=== PATIENT | male | born 1970 | race Caucasian/White ===

== ENCOUNTER 2020-03-02 15:22 | Inpatient (IN) ==
[2020-03-02] MEDS ORDERED: ACETAMINOPHEN 500 MG TAB PO STA (15:46)
[2020-03-02] MEDS: SODIUM CHLORIDE 0.9% 1000ML 1,000 ML IV SCH (16:02)
[2020-03-02 16:03] LABS: Basophils # (auto) 0.01 K/uL (0-0.2); Basophils % (auto) 0.1 %; Eosinophils # (auto) 0.01 K/uL (0-0.5); Eosinophils % (auto) 0.1 %; Hematocrit (blood only) 43.8 % (42-52); Hemoglobin 15.3 g/dL (14.0-18.0); Immature Granulocytes # (auto) 0.01 K/uL (0.00-0.02); Immature Granulocytes % (auto) 0.1 %; Lymphocytes # (auto) 1.97 K/uL (1.2-3.4); Lymphocytes % (auto) 27.1 %; Mean Corpuscular Hemoglobin 33.1 pg (25-34); Mean Corpuscular Hgb Conc 34.9 g/dL (32-36); Mean Corpuscular Volume 94.8 fL (80-100); Mean Platelet Volume 11.4 fL (7.4-10.4); Monocytes # (auto) 1.03 K/uL (0.11-0.59); Monocytes % (auto) 14.2 %; Neutrophils # (auto) 4.24 K/uL (1.4-6.5); Neutrophils % (auto) 58.4 %; Platelet Count 251 K/uL (130-400); RDW Coefficient of Variation 12.7 % (11.5-14.5); Red Blood Count 4.62 M/uL (4.7-6.1); White Blood Count 7.27 K/uL (4.8-10.8)
[2020-03-02 16:23] LABS: Partial Thromboplastin Ratio 1.1; Partial Thromboplastin Time 31.6 Seconds (21.0-31.0); Prothrombin Time 10.6 Seconds (9.0-12.0)
[2020-03-02 16:29] LABS: Alanine Aminotransferase 81 U/L (12-78); Albumin Level 3.6 gm/dl (3.4-5.0); Aspartate Aminotransferase 63 U/L (15-37); Blood Urea Nitrogen 9 mg/dl (7-18); C Reactive Protein 2.31 mg/dl (0-0.29); Calcium 9.1 mg/dl (8.5-10.1); Carbon Dioxide 28 mmol/L (21-32); Chloride 101 mmol/L (98-107); Creatinine Clr Calc Pharmacy 112.3 ml/min; Est GFR (African American) 118.7; Est GFR (Non-African American) 102.4; Glucose 95 mg/dl (70-99); Magnesium 2.3 mg/dl (1.8-2.4); Potassium 4.5 mmol/L (3.5-5.1); Sodium 136 mmol/L (136-145)
--- NOTE | 2020-03-02 16:35 | Emergency Department Note ---
History of Present Illness General Chief complaint: Illness Stated complaint: COUGH, FEVER, CHILLS, SOB, FATIGUE Time Seen by Provider: 03/02/20 15:30 History of Present Illness Maximum Pain Intensity: 4 This is a 49-year-old male that presents to the emergency department via EMS with 2 special officer escort from the [facility] with complaints of "cough, fever, chills, shortness of breath, fatigue. Patient has a history of asthma. He states that for the past 3 days he has had fever, chills, cough. He also had a fever initially. Patient notes that the cough is persistent and has a hard time breathing. He also notes chest pain. The patient is currently being seen during the COVID-19 pandemic and does note that there are other inmates at the facility where he currently resides that have COVID-19. Patient is currently incarcerated. He was saturating around 90% on room air per EMS and was placed on 4 L subsequently reaching an O2 saturation of 100% Documents Additional history was obtained from Ivis, medical department at [facility]. She notes same history provided above and does state that O2 sats today were found to be around 90% on RA and was using accessory muscles. COVID swab obtained at [facility] and was sent out for testing per Ivis. Home Medications Medication Instructions Recorded Confirmed Type No Known Home Medications 03/02/20 03/02/20 History Allergies Allergy/AdvReac Type Severity Reaction Status Date / Time No Known Allergies Allergy Unverified 03/02/20 16:10 Past Med/Surg History Medical History (Updated 03/02/20 @ 22:23 by Keturah Restrepo MD) Asthma Surgical History No pertinent past surgical history Social History Smoking Status: Current every day smoker Second Hand Exposure: Yes; Do You Dip or Chew Tobacco: No; Tobacco Cessation Education Requested by Patient: No Hx Alcohol Use: Yes Hx Substance Use: Yes Last Used Substance Other:: "A few years ago" Preferred Language: Maori Communication Ability: Effective Coloring Machine Operator Required: No Beliefs That Will Affect Care: None Current Living Situation: Other Current Living Situation Comment: [facility] Other Information That Helps Us Care for You: No Feels Safe at Home: Yes Safety Concerns: Feels Safe At This Time Assistive Devices: Oxygen - Continuous Assistive Devices Comment: Only DT covid Review of Systems A total of 10 systems reviewed and were otherwise negative Physical Exam Vital Signs Vital Signs - 24 hr 03/02/20 19:30 Pulse Rate 87 Respiratory Rate 18 Blood Pressure 126/72 Blood Pressure Mean 82 Pulse Oximetry 96 VITAL SIGNS - Vital signs and nursing notes were reviewed. Febrile and tachycardic. Otherwise stable. GENERAL -49-year-old male appearing his stated age who is in no acute distress but is conversationally dyspneic and is coughing several times throughout the co nversation. Communicates well with provider and answers questions appropriately. SKIN - Without rashes. No meningeal or petechial rash HEAD - NC/AT. EYES - PERRL with EOMI bilaterally. Sclera anicteric. EARS - No deformities of external structures noted on gross examination bilaterally. NOSE - Midline and without cyanosis. No epistaxis or purulent drainage noted. MOUTH/OROPHARYNX - Without perioral cyanosis. NECK - Neck with FROM. No nuchal rigidity. LUNGS - Chest wall symmetric without accessory muscle use, intercostals retractions, or central cyanosis. Normal vesicular breath sounds CTA B/L. No wheezes, rales, or rhonchi appreciated. No stridor. CARDIAC - RRR with S1/S2. No murmur, rubs, or gallops appreciated. EXTREMITIES - No clubbing or peripheral cyanosis. No pretibial edema pr esent.+5/5 strength noted in UE/LE bilaterally. NEUROLOGIC - Cranial nerves II through XII grossly intact. PSYCH - A&O, and cooperates fully with examiner. Pt is very pleasant and interacts well with examiner. Course Administered Medications Acetaminophen (Acetaminophen 325 Mg Tab) 325 mg PO Q6H PRN PRN Reason: Mild Pain Stop: 04/02/20 05:15 Last Admin: 03/03/20 05:24 Dose: 325 mg Documented by: [id number] Albuterol (Albuterol Hfa 8 Gm Inhaler) 1 puffs INH QID PRN PRN Reason: sob Stop: 04/02/20 02:03 Last Admin: 03/03/20 08:02 Dose: 1 puffs Documented by: [id number] Dexamethasone (Dexamethasone 4 Mg Tab) 6 mg PO DAILY [facility] Stop: 04/02/20 02:29 Last Admin: 03/03/20 03:24 Dose: 6 mg Documented by: [id number] Enoxaparin Sodium (Enoxaparin Inj 40 Mg/0.4 Ml Syr) 40 mg SQ QAM DAMARI Stop: 04/02/20 08:59 Last Admin: 03/03/20 09:16 Dose: 40 mg Documented by: [id number] Sodium Chloride (Nss 1000ml) 1,000 mls @ 125 mls/hr IV .Q8H DAMARI Stop: 04/01/20 15:59 Last Admin: 03/03/20 06:01 Dose: 125 mls/hr Documented by: [id number] Infusion: 03/03/20 00:02 Dose: 0 mls/hr Documented by: [id number] Admin: 03/02/20 16:02 Dose: 125 mls/hr Documented by: [id number] Ipratropium [place] (Ipratropium [place] Hfa Inhaler) 1 puffs INH QID PRN PRN Reason: sob Stop: 04/02/20 02:14 Last Admin: 03/03/20 08:03 Dose: 1 puffs Documented by: [id number] Sodium Chloride (Sodium Chloride 0.9% 10ml Flush) 30 ml IV Q24H DAMARI Stop: 03/07/20 12:01 Last Admin: 03/03/20 06:01 Dose: 30 ml Documented by: [id number] Discontinued Medications Acetaminophen (Acetaminophen 500 Mg Tab) 1,000 mg PO NOW STA Stop: 03/02/20 15:47 Last Admin: 03/02/20 16:02 Dose: 1,000 mg Documented by: [id number] Albuterol (Albuterol Hfa 8 Gm Inhaler) 2 puffs INH NOW ONE Stop: 03/02/20 17:03 Last Admin: 03/02/20 17:38 Dose: 2 puffs Documented by: [id number] Remdesivir 200 mg/ Sodium (Chloride) 250 mls @ 125 mls/hr IV ONE ONE; Protocol Stop: 03/03/20 04:29 Last Infusion: 03/03/20 06:01 Dose: 125 mls/hr Documented by: [id number] Admin: 03/03/20 03:25 Dose: 125 mls/hr Documented by: [id number] Ioversol (Optiray 320 125ml) 118 ml IV ONCE ONE Stop: 03/03/20 02:03 Last Admin: 03/03/20 02:03 Dose: 1 ml Documented by: [id number] Ioversol (Optiray 320 125ml) 120 ml IV ONCE ONE Stop: 03/03/20 09:08 Last Admin: 03/03/20 09:07 Dose: 120 ml Documented by: [id number] Medical Decision Making Laboratory Data Result diagrams: 03/02/20 14:28 03/03/20 07:05 Lab Results 03/02/20 03/02/20 03/02/20 Range/Units 14:28 14:28 14:28 WBC 7.27 (4.8-10.8) K/uL RBC 4.62 L (4.7-6.1) M/uL Hgb 15.3 (14.0-18.0) g/dL Hct 43.8 (42-52) % MCV 94.8 (80-100) fL MCH 33.1 (25-34) pg MCHC 34.9 (32-36) g/dL RDW Std Deviation 44.0 (36.4-46.3) fL RDW Coeff of Rose 12.7 (11.5-14.5) % Plt Count 251 (130-400) K/uL MPV 11.4 H (7.4-10.4) fL Immature Gran % (Auto) 0.1 % Neut % (Auto) 58.4 % Lymph % (Auto) 27.1 % [place] % (Auto) 14.2 % Eos % (Auto) 0.1 % Baso % (Auto) 0.1 % Neut # (Auto) 4.24 (1.4-6.5) K/uL Lymph # (Auto) 1.97 (1.2-3.4) K/uL [place] # (Auto) 1.03 H (0.11-0.59) K/uL Eos # (Auto) 0.01 (0-0.5) K/uL Baso # (Auto) 0.01 (0-0.2) K/uL Immature Gran # (Auto) 0.01 (0.00-0.02) K/uL ESR (0-14) mm/hr PT 10.6 (9.0-12.0) Seconds INR 1.0 (0.9-1.1) APTT 31.6 H (21.0-31.0) Seconds PTT Ratio 1.1 D-Dimer (0-500) ug/L FEU Sodium 136 (136-145) mmol/L Potassium 4.5 (3.5-5.1) mmol/L Chloride 101 (98-107) mmol/L Carbon Dioxide 28 (21-32) mmol/L Anion Gap 7.0 (3-11) BUN 9 (7-18) mg/dl Creatinine 0.82 (0.6-1.4) mg/dl Est Cr Clr Drug Dosing 112.3 ml/min Est GFR ( Amer) 118.7 Est GFR (Non-Af Amer) 102.4 BUN/Creatinine Ratio 11.0 (10-20) Glucose 95 (70-99) mg/dl Calcium 9.1 (8.5-10.1) mg/dl Magnesium 2.3 (1.8-2.4) mg/dl Ferritin 531.5 H (8-388) ng/ml Total Bilirubin 0.6 (0.2-1) mg/dl AST 63 H (15-37) U/L ALT 81 H (12-78) U/L Alkaline Phosphatase 62 (45-117) U/L Lactate Dehydrogenase (87-241) U/L Troponin I < 0.015 (0-0.045) ng/ml C-Reactive Protein 2.31 H (0-0.29) mg/dl Total Protein 9.6 H (6.4-8.2) gm/dl Albumin 3.6 (3.4-5.0) gm/dl Globulin 6.0 H (2.5-4.0) gm/dl Albumin/Globulin Ratio 0.6 L (0.9-2) Procalcitonin (0-0.5) ng/ml COVID-19 Eval Order SARS-CoV-2, RNA, NAAT (NEGATIVE) 03/02/20 03/02/20 03/02/20 Range/Units 14:28 14:28 14:28 WBC (4.8-10.8) K/uL RBC (4.7-6.1) M/uL Hgb (14.0-18.0) g/dL Hct (42-52) % MCV (80-100) fL MCH (25-34) pg MCHC (32-36) g/dL RDW Std Deviation (36.4-46.3) fL RDW Coeff of Rose (11.5-14.5) % Plt Count (130-400) K/uL MPV (7.4-10.4) fL Immature Gran % (Auto) % Neut % (Auto) % Lymph % (Auto) % [place] % (Auto) % Eos % (Auto) % Baso % (Auto) % Neut # (Auto) (1.4-6.5) K/uL Lymph # (Auto) (1.2-3.4) K/uL [place] # (Auto) (0.11-0.59) K/uL Eos # (Auto) (0-0.5) K/uL Baso # (Auto) (0-0.2) K/uL Immature Gran # (Auto) (0.00-0.02) K/uL ESR 56 H (0-14) mm/hr PT (9.0-12.0) Seconds INR (0.9-1.1) APTT (21.0-31.0) Seconds PTT Ratio D-Dimer (0-500) ug/L FEU Sodium (136-145) mmol/L Potassium (3.5-5.1) mmol/L Chloride (98-107) mmol/L Carbon Dioxide (21-32) mmol/L Anion Gap (3-11) BUN (7-18) mg/dl Creatinine (0.6-1.4) mg/dl Est Cr Clr Drug Dosing ml/min Est GFR ( Amer) Est GFR (Non-Af Amer) BUN/Creatinine Ratio (10-20) Glucose (70-99) mg/dl Calcium (8.5-10.1) mg/dl Magnesium (1.8-2.4) mg/dl Ferritin (8-388) ng/ml Total Bilirubin (0.2-1) mg/dl AST (15-37) U/L ALT (12-78) U/L Alkaline Phosphatase (45-117) U/L Lactate Dehydrogenase 293 H (87-241) U/L Troponin I (0-0.045) ng/ml C-Reactive Protein (0-0.29) mg/dl Total Protein (6.4-8.2) gm/dl Albumin (3.4-5.0) gm/dl Globulin (2.5-4.0) gm/dl Albumin/Globulin Ratio (0.9-2) Procalcitonin 0.09 (0-0.5) ng/ml COVID-19 Eval Order SARS-CoV-2, RNA, NAAT (NEGATIVE) 03/02/20 03/02/20 03/02/20 Range/Units 14:28 17:40 17:40 WBC (4.8-10.8) K/uL RBC (4.7-6.1) M/uL Hgb (14.0-18.0) g/dL Hct (42-52) % MCV (80-100) fL MCH (25-34) pg MCHC (32-36) g/dL RDW Std Deviation (36.4-46.3) fL RDW Coeff of Rose (11.5-14.5) % Plt Count (130-400) K/uL MPV (7.4-10.4) fL Immature Gran % (Auto) % Neut % (Auto) % Lymph % (Auto) % [place] % (Auto) % Eos % (Auto) % Baso % (Auto) % Neut # (Auto) (1.4-6.5) K/uL Lymph # (Auto) (1.2-3.4) K/uL [place] # (Auto) (0.11-0.59) K/uL Eos # (Auto) (0-0.5) K/uL Baso # (Auto) (0-0.2) K/uL Immature Gran # (Auto) (0.00-0.02) K/uL ESR (0-14) mm/hr PT (9.0-12.0) Seconds INR (0.9-1.1) APTT (21.0-31.0) Seconds PTT Ratio D-Dimer 760 H* (0-500) ug/L FEU Sodium (136-145) mmol/L Potassium (3.5-5.1) mmol/L Chloride (98-107) mmol/L Carbon Dioxide (21-32) mmol/L Anion Gap (3-11) BUN (7-18) mg/dl Creatinine (0.6-1.4) mg/dl Est Cr Clr Drug Dosing ml/min Est GFR ( Amer) Est GFR (Non-Af Amer) BUN/Creatinine Ratio (10-20) Glucose (70-99) mg/dl Calcium (8.5-10.1) mg/dl Magnesium (1.8-2.4) mg/dl Ferritin (8-388) ng/ml Total Bilirubin (0.2-1) mg/dl AST (15-37) U/L ALT (12-78) U/L Alkaline Phosphatase (45-117) U/L Lactate Dehydrogenase (87-241) U/L Troponin I (0-0.045) ng/ml C-Reactive Protein (0-0.29) mg/dl Total Protein (6.4-8.2) gm/dl Albumin (3.4-5.0) gm/dl Globulin (2.5-4.0) gm/dl Albumin/Globulin Ratio (0.9-2) Procalcitonin (0-0.5) ng/ml COVID-19 Eval Order Covid19 [facility] SARS-CoV-2, RNA, NAAT POSITIVE A* (NEGATIVE) Imaging Data Radiologist's Impression: SINGLE VIEW CHEST CLINICAL HISTORY: Atypical chest pain. Covid. FINDINGS: An AP, portable, upright chest radiograph is obtained. No prior studies are available for comparison at the time of dictation. The examination is degraded by portable technique and apical lordotic positioning. The heart is top normal for projection. Multifocal airspace consolidation is seen throughout both lungs. No large pleural effusion or pneumothorax is seen. The bony thorax is grossly intact. IMPRESSION: Multifocal airspace consolidation is consistent with an infectious pneumonitis. Clinical correlation will be required and radiographic follow-up to resolution is recommended. ACT 112: Negative or not required by law. Electronically signed by: Power Regan M.D. 03/02/2020 4:40 PM [facility] Narrative Patient was seen and evaluated as above in room A12. Review was performed of nursing notes and vital signs. After obtaining a thorough history and physical examination the above work up was performed. Patient presents to us today with 3 days of cough, fever, chills, shortness of breath and fatigue. He is currently being seen during the COVID-19 pandemic. He is incarcerated currently. COVID19 swab is pending at this time per [employer]. He denies any close contacts that have been ill. On arrival the patient is short of breath, conversationally dyspneic and is febrile. Reportedly O2 sat was as low as 90% on room air. He was given p.o. Tylenol and albuterol inhaler. IV access was established. Labs were drawn. Chest x-ray consistent with multifocal airspace consolidation consistent with infectious pneumonia. Patient clinically appears to have COVID-19 and this was confirmed via test here. No leukocytosis or anemia. No emergent metabolic disturbance. Ferritin, lactate dehydrogenase, CRP elevation. Covid negative. Patient's EKG at this time reveals normal sinus rhythm at a rate of 99 bpm. No ectopy or ischemic change. QTc 433. Given the patient's decline, O2 sat of 90%, being conversationally dyspneic, using accessory muscles on examination earlier today per DOC report, and history of asthma it is felt that he would be better served in the inpatient setting. Several conversations were had with Ivis, from medical at [facility]. I did notify them that he will be admitted. Case discussed with the attending physician as well as the hospitalist. Additional orders of D Dimer and Blood cultures recommended and were ordered. Please refer to further documentation about his stay. Case was discussed with the attending physician. Patient was seen during the COVID-19 pandemic during a period of high volume and acuity. Cardiac monitoring was ordered and revealed a pulse of 83 bpm. Sinus. GCS: 15 In the evaluation and treatment of this patient the following differential diagnoses were entertained: MO, PE, pericarditis, costochondritis, pneumonia, COVID-19, myocarditis, among others. Impression & Plan COVID-19, Chest pain, Acute dyspnea, Cough, Fever Discharge Plan Visit Data Chief Complaint: Illness Stated Complaint: COUGH, FEVER, CHILLS, SOB, FATIGUE ED Provider: Nayan Guidry ED Midlevel Provider: Franko Nunez Discharge Problem: COVID-19, Chest pain, Acute dyspnea, Cough, Fever Patient Disposition: Admitted As Inpatient Discharge Instructions Interventions: ED Discharge Assessment Last Done: 03/03/20 01:36
[2020-03-02 16:37] LABS: Albumin Globulin Ratio 0.6 (0.9-2); Alkaline Phosphatase 62 U/L (45-117); Bilirubin,Total 0.6 mg/dl (0.2-1); Ferritin 531.5 ng/ml (8-388); Total Protein 9.6 gm/dl (6.4-8.2); Troponin I < 0.015 ng/ml (0-0.045)
--- NOTE | 2020-03-02 16:41 | XRay Report ---
SINGLE VIEW CHEST CLINICAL HISTORY: Atypical chest pain. Covid. FINDINGS: An AP, portable, upright chest radiograph is obtained. No prior studies are available for c omparison at the time of dictation. The examination is degraded by portable technique and apical lord otic positioning. The heart is top normal for projection. Multifocal airspace consolidation is seen t hroughout both lungs. No large pleural effusion or pneumothorax is seen. The bony thorax is grossly i ntact. IMPRESSION: Multifocal airspace consolidation is consistent with an infectious pneumonitis. Clinical correlation will be required and radiographic follow-up to resolution is recommended. ACT 112: Negative or not required by law. Electronically signed by: Power Regan M.D. 03/02/2020 4:40 PM
[2020-03-02] MEDS ORDERED: ALBUTEROL HFA 8 GM INHALER INH ONE (17:02)
[2020-03-02 18:24] LABS: D Dimer 760 ug/L FEU (0-500)
[2020-03-02 21:25] LABS: Appearance Urine Clear (Clear); Bilirubin Urine Negative (Negative); Blood Urine Negative (Negative); Color Urine Yellow; Glucose Urine UA Negative (Negative); Ketones Urine Negative (Negative); Leukocyte Esterase Urine Negative (Negative); Nitrite Urine Negative (Negative); Protein Urine Negative (Negative); Urobilinogen Urine Negative (Negative)
--- NOTE | 2020-03-02 21:51 | History & Physical Report ---
Date of Service March 02, 2020 Assessment & Plan (1) Pneumonia due to 2019 novel coronavirus: Present on admission with SOB associated with fever and dry cough COVID 19 positive CXR showed multifocal airspace consolidation is consistent with an infectious pneumonitis. Pt meets criteria for Dexamethasone, Remdesivir and plasma convalescent oxygen sat 90% and required 2L NC Will start on Dexamethosene 6mg IV daily IV remdesivir 200mg IVx1, then 125mg to complete a total 5 days course, side effect discussed with patient such as worsening liver enzymes Pt agreed to get the plasma convalescent. Consent obtained from patient (Consent form signed by me and nurses) Will monitor LFT while on Remdesivir Elevated Ddimer, CRP, LDH and ESR Will monitor inflammatory markers such as ESR, CRP, Ferritin, LDH Will hold on abx for now since procalcitonin negative, will repeat procalcitonin in am Continue oxygen supplement Will monitor closely Elevated D-Dimer Mostly due to COVID 19 Will get a CTA chest to r/o PE Continue monitor closely Elevated Liver Enzymes Mostly due to HCV Case discussed with pharmacy about Remdesivir in HCV patient and that is not a contraindication Will monitor LFT closely DVT px on Lovenox subq Code Status Full code History of Present Illness Chief Complaint: SOB/Fever Primary Care Provider: [facility] 49 yo Male with PMH of HCV, asthma was brought from the [facility] to the ER for SOB, cough associated with fever and chills. Pt is incarcerated and came with 2correctional officers. He said that SOB started about 3 days ago. Pt said that about 3 days ago he started to have dry cough and SOB. He said that he has been having fever and chills. Pt said that his breathing has been getting worst and the cough continue to persist. As per EMS his oxygen saturation was in the 90% and was placed on 4L NC . He said that he is breathing better with the oxygen. Denies any chest pain, palpitation, dizziness and weakness. CXR on admission showed multifocal airspace consolidation is consistent with an infectious pneumonitis. Allergies Allergy/AdvReac Type Severity Reaction Status Date / Time No Known Allergies Allergy Unverified 03/02/20 16:10 Home Medications Medication Instructions Recorded Confirmed Type No Known Home Medications 03/02/20 03/02/20 History Past Med/Surg History Medical History Asthma Surgical History No pertinent past surgical history Social History Smoking Status: Current every day smoker Feels Safe at Home: Yes Review of Systems Review of Systems: All systems reviewed & are unremarkable except as noted in HPI & below Physical Exam Physical Exam: General- No acute distress Head- atraumatic Eyes- PERRL, EOMI, ENT- oropharynx clear Neck- supple, no JVD Lungs- clear to auscultation Heart- regular rhythm; no murmur Abdomen- normal bowel sounds, soft, nontender Extremities- no calf tenderness Neuro- alert, oriented x 3; PERRL, EOMI; no facial palsy; no dysarthria Skin- warm & dry Results & Data Results & Data ([facility]) Vital Signs (Past 12 Hours) Vital Signs Temp Pulse Pulse Resp BP BP Pulse Ox 03/02/20 21:31 82 22 126/82 97 03/02/20 21:18 37.1 C 03/02/20 21:00 84 21 129/72 97 03/02/20 20:30 83 24 120/69 97 03/02/20 20:00 80 21 127/67 97 03/02/20 19:30 87 18 126/72 96 03/02/20 19:00 87 24 127/70 98 03/02/20 18:31 94 H 20 96 03/02/20 18:30 96 H 20 134/85 96 03/02/20 18:01 87 20 97 03/02/20 18:00 84 20 137/74 97 03/02/20 17:40 37.0 C 03/02/20 17:31 78 18 94 03/02/20 17:30 78 20 137/78 95 03/02/20 17:01 83 20 93 03/02/20 17:00 87 23 132/76 94 03/02/20 16:31 99 H 21 95 03/02/20 16:30 87 22 119/73 94 03/02/20 16:01 95 H 22 94 03/02/20 16:00 97 H 20 145/83 H 93 03/02/20 15:50 101 H 20 96 03/02/20 15:41 38.9 C H 101 H 101 H 20 148/84 H 148/84 H 96 03/02/20 15:38 105 H 23 94 03/02/20 15:31 101 H 20 148/84 H 96 Diagnostic Findings SINGLE VIEW CHEST CLINICAL HISTORY: Atypical chest pain. Covid. FINDINGS: An AP, portable, upright chest radiograph is obtained. No prior studies are available for comparison at the time of dictation. The examination i s degraded by portable technique and apical lordotic positioning. The heart is top normal for projection. Multifocal airspace consolidation is seen throughout both lungs. No large pleural effusion or pneumothorax is seen. The bony thorax is grossly intact. IMPRESSION: Multifocal airspace consolidation is consistent with an infectious pneumonitis. Clinical correlation will be required and radiographic follow-up to resolution is recommended. ACT 112: Negative or not required by law. Electronically signed by: Power Regan M.D. 03/02/2020 4:40 PM Dictated: 03/02/20 1639Transcribed: 03/02/20 1639
[2020-03-03] MEDS ORDERED: dexAMETHasone 1 MG TAB PO SCH (01:56)
[2020-03-03] MEDS ORDERED: IPRATROPIUM BROMIDE/ALBUTEROL respimat INH INH PRN (01:56)
[2020-03-03] MEDS ORDERED: OPTIRAY 320 125ml IV ONE ×2 (02:02→09:07)
[2020-03-03] MEDS ORDERED: REMDESIVIR 200 MG in SODIUM CHLORIDE 0.9% 210 ML IV ONE (02:30)
[2020-03-03] MEDS: dexAMETHasone 4 MG TAB PO SCH (03:24)
[2020-03-03] MEDS ORDERED: ACETAMINOPHEN 325 MG TAB PO PRN (05:16)
[2020-03-03] MEDS: SODIUM CHLORIDE 0.9% 1000ML 1,000 ML IV SCH ×3 (06:01→23:36)
[2020-03-03] MEDS: SODIUM CHLORIDE 0.9% 10ML FLUSH IV SCH (06:01)
--- NOTE | 2020-03-03 06:36 | Electrocardiogram Report ---
Test Reason : Blood Pressure : / mmHG Vent. Rate : 099 BPM Atrial Rate : 099 BPM P-R Int : 138 ms QRS Dur : 088 ms QT Int : 338 ms P-R-T Axes : 047 -18 052 degrees QTc Int : 433 ms Normal sinus rhythm Possible Left atrial enlargement Borderline ECG No previous ECGs available Confirmed by Roland Saenz ([id number]) on 03/03/2020 6:36:01 AM Referred By: Confirmed By:Roland Saenz
[2020-03-03] MEDS: ALBUTEROL HFA 8 GM INHALER INH PRN (08:02)
[2020-03-03] MEDS: IPRATROPIUM BROMIDE HFA INHALER INH PRN (08:03)
[2020-03-03 08:33] LABS: BUN Creatinine Ratio 9.4 (10-20); C Reactive Protein 3.33 mg/dl (0-0.29); Calcium 8.1 mg/dl (8.5-10.1); Creatinine Clr Calc Pharmacy 135.7 ml/min; Est GFR (African American) 128.2; Est GFR (Non-African American) 110.6
[2020-03-03 08:38] LABS: Albumin Globulin Ratio 0.6 (0.9-2); Bilirubin,Total 0.5 mg/dl (0.2-1); Globulin 5.3 gm/dl (2.5-4.0); Total Protein 8.3 gm/dl (6.4-8.2)
--- NOTE | 2020-03-03 09:14 | CT Scan Report ---
CT ANGIOGRAM OF THE CHEST CLINICAL HISTORY: Atypical chest pain. Covid. COMPARISON STUDY: Chest x-ray dated 03/02/2020. TECHNIQUE: Following the IV administration of 120 cc of Optiray 320, CT angiogram of the chest was pe rformed from the upper abdomen to the thoracic inlet utilizing the pulmonary embolus protocol. Images are reviewed in the axial, sagittal, and coronal planes. 3-D MIPS images are created and assessed. I V contrast was administered without complication. A dose lowering technique was utilized adhering to the principles of ALARA. CT DOSE: 595.32 mGycm FINDINGS: Thyroid: Imaged portions of the thyroid gland are normal in size and attenuation. Thoracic aorta: The thoracic aorta is normal in caliber and demonstrates variant 3-vessel arch anatom y. There is bovine arch anatomy, and the left vertebral artery arises directly from the arch. No diss ection is seen. Pulmonary vasculature: The pulmonary trunk is normal in caliber. There are no filling defects identif ied in main, lobar, or segmental pulmonary branches to suggest pulmonary embolus. Heart: The heart is top normal in size and without pericardial effusion. The coronary arteries are de nsely calcified. Lungs and pleural spaces: Emphysematous change is noted. The trachea and central airways are clear. T here is multifocal groundglass consolidation seen throughout both lungs with a subpleural predominanc e. Atelectasis is noted. Lung bases. No pleural effusion is identified. Mediastinum: There are numerous prominent mediastinal lymph nodes. A subcarinal node measures 12 mm i n short axis as seen on image #143. Suzanna: Mildly enlarged hilar lymph nodes measure up to 13 mm in short axis. Axillae: There is no axillary lymphadenopathy. Upper abdomen: Partially visualized upper abdominal viscera is within normal limits. Skeletal structures: There are minimal superior endplate compression deformities of T5, T7, and T8. N o lytic or blastic bony lesions are seen. IMPRESSION: 1. There is no evidence of pulmonary embolus in the main, lobar, or segmental pulmonary arteries. 2. Multifocal groundglass consolidation throughout both lungs is typical for an infectious pneumoniti s. Radiographic follow-up to resolution is recommended. 3. Emphysema. 4. Advanced coronary artery calcification. 5. Mildly enlarged mediastinal and hilar lymph nodes are likely on a reactive basis. 6. Additional findings as above. ACT 112: Negative or not required by law. Electronically signed by: Power Regan M.D. 03/03/2020 9:13 AM
[2020-03-03] MEDS: ENOXAPARIN INJ 40 MG/0.4 ML SYR SQ SCH (09:16)
--- NOTE | 2020-03-03 19:51 | Hospitalist Progress Note ---
Date of Service March 03, 2020 Assessment & Plan (1) Pneumonia due to 2019 novel coronavirus: Continue 2 L of oxygen via nasal cannula Continue remdesivir and Decadron Will hold on abx for now since procalcitonin negative, will repeat procalcitonin in am Lovenox for DVT prophylaxis States he feels improved today Elevated D-Dimer Mostly due to COVID 19 CT chest no PE Clinical exam no DVT Elevated Liver Enzymes Mostly due to HCV Case discussed with pharmacy about Remdesivir in HCV patient and that is not a contraindication LFTs stable DVT px on Lovenox subq Code Status Full code Admission and Anticipated Discharge Date Admission Date: March 02, 2020 Subjective ff up for COVID pneumonia, hypoxia seen resting in bed, comfortable on 2 L nasal cannula Not in distress States he feels improved today compared yesterday No shortness of breath, cough improving No chest pain No abdominal pain, diarrhea No leg pain No other symptoms Review of Systems Review of Systems: All systems reviewed & are unremarkable except as noted in Subjective Physical Exam Physical Exam: General- oriented x 3, not in distress, speaks in sentences with no effort or accessory muscle use Eyes- anicteric Neck- no JVD Lungs-mild crackles at the bases, no rales/wheezes Heart- normal rate, regular rhythm; no murmurs Abdomen- normal bowel sounds, nondistended, soft, nontender Extremities- no pretibial edema, no calf tenderness Neuro- alert, oriented x 3; no gross focal neurologic deficits Skin- warm & dry Results & Data Results & Data ([facility]) Vital Signs (Past 12 Hours) Vital Signs Temp Pulse Pulse Resp BP BP Pulse Ox 03/03/20 16:52 36.5 C 77 16 121/71 96 03/03/20 16:38 36.9 C 74 18 113/63 94 03/03/20 16:25 36.7 C 72 16 145/72 H 94 03/03/20 16:18 36.9 C 72 18 118/68 94 03/03/20 15:58 36.6 C 71 16 126/69 95 03/03/20 08:04 76 18 98 Laboratory Results Laboratory Results - last 24 hr 03/02/20 03/02/20 03/03/20 21:15 23:08 07:05 ESR Sodium 138 Potassium 4.0 Chloride 107 Carbon Dioxide 24 Anion Gap 7.0 BUN 6 L Creatinine 0.68 Est Cr Clr Drug Dosing 135.7 Est GFR ( Amer) 128.2 Est GFR (Non-Af Amer) 110.6 BUN/Creatinine Ratio 9.4 L Glucose 117 H Calcium 8.1 L Ferritin 485.0 H Total Bilirubin 0.5 AST 48 H ALT 63 Alkaline Phosphatase 52 Lactate Dehydrogenase C-Reactive Protein 3.33 H Total Protein 8.3 H Albumin 3.0 L Globulin 5.3 H Albumin/Globulin Ratio 0.6 L Procalcitonin Urine Color Yellow Urine Appearance Clear Urine pH 6.0 Ur Specific [place] 1.010 Urine Protein Negative Urine Glucose (UA) Negative Urine Ketones Negative Urine Blood Negative Urine Nitrite Negative Urine Bilirubin Negative Urine Urobilinogen Negative Ur Leukocyte Esterase Negative Blood Type A Positive Antibody Screen NEGATIVE 03/03/20 03/03/20 03/03/20 07:05 07:05 07:05 ESR 65 H Sodium Potassium Chloride Carbon Dioxide Anion Gap BUN Creatinine Est Cr Clr Drug Dosing Est GFR ( Amer) Est GFR (Non-Af Amer) BUN/Creatinine Ratio Glucose Calcium Ferritin Total Bilirubin AST ALT Alkaline Phosphatase Lactate Dehydrogenase 275 H C-Reactive Protein Total Protein Albumin Globulin Albumin/Globulin Ratio Procalcitonin 0.06 Urine Color Urine Appearance Urine pH Ur Specific [place] Urine Protein Urine Glucose (UA) Urine Ketones Urine Blood Urine Nitrite Urine Bilirubin Urine Urobilinogen Ur Leukocyte Esterase Blood Type Antibody Screen
[2020-03-04] MEDS: ALBUTEROL HFA 8 GM INHALER INH PRN (00:23)
[2020-03-04] MEDS: IPRATROPIUM BROMIDE HFA INHALER INH PRN (00:23)
[2020-03-04] MEDS: ENOXAPARIN INJ 40 MG/0.4 ML SYR SQ SCH (08:50)
[2020-03-04] MEDS: dexAMETHasone 4 MG TAB PO SCH (08:51)
[2020-03-04] MEDS: REMDESIVIR 100 MG in SODIUM CHLORIDE 0.9% 230 ML IV SCH (12:29)
[2020-03-04] MEDS: SODIUM CHLORIDE 0.9% 10ML FLUSH IV SCH (13:25)
[2020-03-04 14:18] LABS: Basophils # (auto) 0.01 K/uL (0-0.2); Basophils % (auto) 0.1 %; Hematocrit (blood only) 40.2 % (42-52); Hemoglobin 13.8 g/dL (14.0-18.0); Immature Granulocytes # (auto) 0.01 K/uL (0.00-0.02); Immature Granulocytes % (auto) 0.1 %; Lymphocytes # (auto) 0.99 K/uL (1.2-3.4); Lymphocytes % (auto) 14.1 %; Mean Corpuscular Hemoglobin 32.6 pg (25-34); Mean Corpuscular Hgb Conc 34.3 g/dL (32-36); Mean Platelet Volume 10.7 fL (7.4-10.4); Monocytes # (auto) 0.22 K/uL (0.11-0.59); Monocytes % (auto) 3.1 %; Neutrophils # (auto) 5.78 K/uL (1.4-6.5); Neutrophils % (auto) 82.6 %; Platelet Count 297 K/uL (130-400); RDW Coefficient of Variation 12.7 % (11.5-14.5); RDW Standard Deviation 44.2 fL (36.4-46.3); Red Blood Count 4.23 M/uL (4.7-6.1); White Blood Count 7.01 K/uL (4.8-10.8)
[2020-03-04 14:42] LABS: Albumin Level 2.9 gm/dl (3.4-5.0); Bilirubin Direct 0.2 mg/dl (0-0.2); Calcium 8.2 mg/dl (8.5-10.1); Creatinine Clr Calc Pharmacy 99.2 ml/min; Est GFR (African American) 109.8; Est GFR (Non-African American) 94.7
[2020-03-04 14:45] LABS: Bilirubin,Total 0.4 mg/dl (0.2-1); Total Protein 8.2 gm/dl (6.4-8.2)
--- NOTE | 2020-03-04 20:38 | Hospitalist Progress Note ---
Date of Service March 04, 2020 Assessment & Plan (1) Pneumonia due to 2019 novel coronavirus: Continue 2 L of oxygen via nasal cannula--> wean off accordingly Continue remdesivir and Decadron Will hold on abx for now since procalcitonin negative, will repeat procalcitonin in am Lovenox for DVT prophylaxis Incentive spirometry Elevated D-Dimer Mostly due to COVID 19 CT chest no PE Clinical exam no DVT Elevated Liver Enzymes Mostly due to HCV Case discussed with pharmacy about Remdesivir in HCV patient and that is not a contraindication LFTs stable DVT px on Lovenox subq Code Status Full code Admission and Anticipated Discharge Date Admission Date: March 02, 2020 Subjective ff up for Covid 19 pneumonia, hypoxia seen resting in bed, not in distress states breathing is about the same has mild cough ,with white sputum no chest pain, leg pain, abdominal pain no other symptoms Review of Systems Review of Systems: All systems reviewed & are unremarkable except as noted in Subjective Physical Exam Physical Exam: General- oriented x 3, not in distress, speaks in sentences with no effort or accessory muscle use Eyes- anicteric Neck- no JVD Lungs- mild rales at the bases Heart- normal rate, regular rhythm; no murmurs Abdomen- normal bowel sounds, nondistended, soft, nontender Extremities- no pretibial edema, no calf tenderness Neuro- alert, oriented x 3; no gross focal neurologic deficits Skin- warm & dry Results & Data Results & Data ([facility]) Vital Signs (Past 12 Hours) Vital Signs Temp Pulse Resp BP Pulse Ox 03/04/20 17:14 93 03/04/20 16:00 36.7 C 64 18 124/69 93 Laboratory Results Laboratory Results - last 24 hr 03/04/20 03/04/20 14:00 14:00 WBC 7.01 RBC 4.23 L Hgb 13.8 L Hct 40.2 L MCV 95.0 MCH 32.6 MCHC 34.3 RDW Std Deviation 44.2 RDW Coeff of Rose 12.7 Plt Count 297 MPV 10.7 H Immature Gran % (Auto) 0.1 Neut % (Auto) 82.6 Lymph % (Auto) 14.1 Reeves % (Auto) 3.1 Eos % (Auto) 0.0 Baso % (Auto) 0.1 Neut # (Auto) 5.78 Lymph # (Auto) 0.99 L Reeves # (Auto) 0.22 Eos # (Auto) 0.00 Baso # (Auto) 0.01 Immature Gran # (Auto) 0.01 Sodium 140 Potassium 4.0 Chloride 107 Carbon Dioxide 23 Anion Gap 10.0 BUN 12 D Creatinine 0.93 Est Cr Clr Drug Dosing 99.2 Est GFR ( Amer) 109.8 Est GFR (Non-Af Amer) 94.7 BUN/Creatinine Ratio 13.0 Glucose 241 H Calcium 8.2 L Total Bilirubin 0.4 Direct Bilirubin 0.2 AST 30 ALT 46 Alkaline Phosphatase 50 Total Protein 8.2 Albumin 2.9 L
[2020-03-05] MEDS: ENOXAPARIN INJ 40 MG/0.4 ML SYR SQ SCH (08:06)
[2020-03-05] MEDS: dexAMETHasone 4 MG TAB PO SCH (08:50)
[2020-03-05 09:03] LABS: BUN Creatinine Ratio 19.9 (10-20); Bilirubin Direct 0.1 mg/dl (0-0.2); Calcium 8.7 mg/dl (8.5-10.1); Est GFR (African American) 123.1; Est GFR (Non-African American) 106.2; Potassium 4.5 mmol/L (3.5-5.1)
[2020-03-05 09:06] LABS: Bilirubin,Total 0.5 mg/dl (0.2-1); Total Protein 8.5 gm/dl (6.4-8.2)
[2020-03-05] MEDS: REMDESIVIR 100 MG in SODIUM CHLORIDE 0.9% 230 ML IV SCH (11:38)
[2020-03-05] MEDS: SODIUM CHLORIDE 0.9% 10ML FLUSH IV SCH (11:38)
[2020-03-05] MEDS: PANTOprazole 40 MG TAB PO SCH (12:47)
--- NOTE | 2020-03-05 18:25 | Hospitalist Progress Note ---
Date of Service March 05, 2020 Assessment & Plan (1) Pneumonia due to 2019 novel coronavirus: Continue oxygen via nasal cannula--> wean off accordingly Continue remdesivir and Decadron day #4 Will hold on abx for now since procalcitonin negative, will repeat procalcitonin in am Lovenox for DVT prophylaxis Incentive spirometry, Mucinex added Renal function stable Elevated D-Dimer Mostly due to COVID 19 CT chest no PE Clinical exam no DVT Elevated Liver Enzymes Mostly due to HCV Case discussed with pharmacy about Remdesivir in HCV patient and that is not a contraindication LFTs stable DVT px on Lovenox subq Code Status Full code Admission and Anticipated Discharge Date Admission Date: March 02, 2020 Subjective Follow-up for Covid pneumonia, hypoxia, etc. Seen resting in bed, comfortable, not in distress On 1 L of oxygen via nasal cannula States breathing continues to improve, less cough Denies chest pain, leg pain, abdominal pain, nausea vomiting, diarrhea, appetite is good No other symptom Review of Systems Review of Systems: All systems reviewed & are unremarkable except as noted in Subjective Physical Exam Physical Exam: General- oriented x 3, not in distress, speaks in sentences with no effort or accessory muscle use Eyes- anicteric Neck- no JVD Lungs-mild rales at the bases, no wheezing, good air entry bilaterally Heart- normal rate, regular rhythm; no murmurs Abdomen- normal bowel sounds, nondistended, soft, nontender Extremities- no pretibial edema, no calf tenderness Neuro- alert, oriented x 3; no gross focal neurologic deficits Skin- warm & dry Results & Data Results & Data ([facility]) Vital Signs (Past 12 Hours) Vital Signs Temp Pulse Resp BP Pulse Ox 03/05/20 15:20 36.8 C 62 18 126/67 95 03/05/20 07:37 36.8 C 61 16 121/74 96 Laboratory Results Laboratory Results - last 24 hr 03/05/20 05:38 Sodium 141 Potassium 4.5 Chloride 108 H Carbon Dioxide 26 Anion Gap 7.0 BUN 15 Creatinine 0.75 Est Cr Clr Drug Dosing 123.0 Est GFR ( Amer) 123.1 Est GFR (Non-Af Amer) 106.2 BUN/Creatinine Ratio 19.9 Glucose 102 H Calcium 8.7 Total Bilirubin 0.5 Direct Bilirubin 0.1 AST 27 ALT 45 Alkaline Phosphatase 47 Total Protein 8.5 H Albumin 3.0 L
[2020-03-05] MEDS: guaiFENesin 600 MG TABCR PO SCH (21:29)
[2020-03-06] MEDS: guaiFENesin 600 MG TABCR PO SCH (07:47)
[2020-03-06] MEDS: dexAMETHasone 4 MG TAB PO SCH (07:48)
[2020-03-06] MEDS: ENOXAPARIN INJ 40 MG/0.4 ML SYR SQ SCH (07:48)
[2020-03-06] MEDS: PANTOprazole 40 MG TAB PO SCH (07:49)
[2020-03-06 10:39] LABS: BUN Creatinine Ratio 22.4 (10-20); Calcium 8.5 mg/dl (8.5-10.1); Creatinine Clr Calc Pharmacy 135.7 ml/min; Est GFR (African American) 128.2; Est GFR (Non-African American) 110.6; Potassium 4.4 mmol/L (3.5-5.1)
[2020-03-06 10:58] LABS: Albumin Level 2.9 gm/dl (3.4-5.0); Calcium 8.5 mg/dl (8.5-10.1); Creatinine Clr Calc Pharmacy 133.7 ml/min; Est GFR (African American) 127.4; Est GFR (Non-African American) 109.9
[2020-03-06 11:01] LABS: Albumin Globulin Ratio 0.6 (0.9-2); Bilirubin,Total 0.6 mg/dl (0.2-1); Globulin 5.2 gm/dl (2.5-4.0); Total Protein 8.1 gm/dl (6.4-8.2)
[2020-03-06] MEDS: REMDESIVIR 100 MG in SODIUM CHLORIDE 0.9% 230 ML IV SCH (11:40)
[2020-03-06] MEDS: SODIUM CHLORIDE 0.9% 10ML FLUSH IV SCH (11:41)
--- NOTE | 2020-03-06 17:52 | Hospitalist Progress Note ---
Date of Service March 06, 2020 Assessment & Plan (1) Pneumonia due to 2019 novel coronavirus: Now on remdesivir and Decadron day #5 Clinically improved Weaned off oxygen, saturating well 94% on room air Discharge plan: Decadron 6 mg p.o. daily x5 more days Continue with incentive spirometry, Mucinex added Renal function and liver function tests stable Repeat basic metabolic profile and liver function test in 2 to 3 days Elevated D-Dimer Mostly due to COVID 19 CT chest no PE Clinical exam no DVT Elevated Liver Enzymes Mostly due to HCV Case discussed with pharmacy about Remdesivir in HCV patient and that is not a contraindication LFTs stable DVT px given Lovenox subq Code Status Full code Disposition Discharged back to correctional facility today Admission and Anticipated Discharge Date Admission Date: March 02, 2020 Subjective Follow-up for COVID-19 pneumonia with hypoxia Seen sitting up in bed, watching TV, comfortable, not in distress, on room air with O2 saturation more than 94 States he feels much better overall Denies shortness of breath, has minimal cough No chest pain, abdominal pain, nausea vomiting, leg pain Denies any other symptoms States that he is ready for discharge Review of Systems Review of Systems: All systems reviewed & are unremarkable except as noted in Subjective Physical Exam Physical Exam: General- oriented x 3, not in distress, speaks in sentences with no effort or accessory muscle use Eyes- anicteric Neck- no JVD Lungs- clear breath sounds bilaterally No wheezing No crackles Heart- normal rate, regular rhythm; no murmurs Abdomen- normal bowel sounds, nondistended, soft, nontender Extremities- no pretibial edema, no calf tenderness Neuro- alert, oriented x 3; no gross focal neurologic deficits Skin- warm & dry Results & Data Results & Data ([facility]) Vital Signs (Past 12 Hours) Vital Signs Temp Pulse Pulse Resp BP BP Pulse Ox 03/06/20 16:27 36.7 C 71 59 L 18 118/65 126/69 96 03/06/20 15:14 36.7 C 59 L 18 118/65 96 03/06/20 07:38 36.8 C 63 16 117/71 94 Laboratory Results Laboratory Results - last 24 hr 03/06/20 03/06/20 05:41 10:03 Sodium 140 138 Potassium 4.4 4.0 Chloride 109 H 109 H Carbon Dioxide 26 24 Anion Gap 5.0 5.0 BUN 15 16 Creatinine 0.68 0.69 Est Cr Clr Drug Dosing 135.7 133.7 Est GFR ( Amer) 128.2 127.4 Est GFR (Non-Af Amer) 110.6 109.9 BUN/Creatinine Ratio 22.4 H 23.0 H Glucose 100 H 136 H Calcium 8.5 8.5 Total Bilirubin 0.6 AST 19 ALT 45 Alkaline Phosphatase 46 Total Protein 8.1 Albumin 2.9 L Globulin 5.2 H Albumin/Globulin Ratio 0.6 L
--- NOTE | 2020-03-06 18:20 | Discharge Summary ---
Date of Service March 06, 2020 Admission HPI Per Admitting Provider 49 yo Male with PMH of HCV, asthma was brought from the [facility] to the ER for SOB, cough associated with fever and chills. Pt is incarcerated and came with [employer]rection[employer]. He said that SOB started about 3 days ago. Pt said that about 3 days ago he started to have dry cough and SOB. He said that he has been having fever and chills. Pt said that his breathing has been getting worst and the cough continue to persist. As per EMS his oxygen saturation was in the 90% and was placed on 4L NC . He said that he is breathing better with the oxygen. Denies any chest pain, palpitation, dizziness and weakness. CXR on admission showed multifocal airspace consolidation is consistent with an infectious pneumonitis. Admission Exam Per Admitting Provider General- No acute distress Head- atraumatic Eyes- PERRL, EOMI, ENT- oropharynx clear Neck- supple, no JVD Lungs- clear to auscultation Heart- regular rhythm; no murmur Abdomen- normal bowel sounds, soft, nontender Extremities- no calf tenderness Neuro- alert, oriented x 3; PERRL, EOMI; no facial palsy; no dysarthria Skin- warm & dry Principal Diagnosis COVID-19 pneumonia with hypoxia Discharge Exam General- oriented x 3, not in distress, speaks in sentences with no effort or accessory muscle use Eyes- anicteric Neck- no JVD Lungs- clear breath sounds bilaterally No wheezing No crackles Heart- normal rate, regular rhythm; no murmurs Abdomen- normal bowel sounds, nondistended, soft, nontender Extremities- no pretibial edema, no calf tenderness Neuro- alert, oriented x 3; no gross focal neurologic deficits Skin- warm & dry Discharge Data Allergies Allergy/AdvReac Type Severity Reaction Status Date / Time No Known Allergies Allergy Unverified 03/02/20 16:10 Consultations 03/02/20 17:34 ED Decision to Admit Stat Ordered Studies 03/03/20 01:56 CT angio chest PE protocol Urgent Thyroid: Imaged portions of the thyroid gland are normal in size and attenuation. Thoracic aorta: The thoracic aorta is normal in caliber and demonstrates variant 3-vessel arch anatomy. There is bovine arch anatomy, and the left vertebral artery arises directly from the arch. No dissection is seen. Pulmonary vasculature: The pulmonary trunk is normal in caliber. There are no filling defects identified in main, lobar, or segmental pulmonary branches to suggest pulmonary embolus. Heart: The heart is top normal in size and without pericardial effusion. The coronary arteries are densely calcified. Lungs and pleural spaces: Emphysematous change is noted. The trachea and central airways are clear. There is multifocal groundglass consolidation seen throughout both lungs with a subpleural predominance. Atelectasis is noted. Lung bases. No pleural effusion is identified. Mediastinum: There are numerous prominent mediastinal lymph nodes. A subcarinal node measures 12 mm in short axis as seen on image #143. Suzanna: Mildly enlarged hilar lymph nodes measure up to 13 mm in short axis. Axillae: There is no axillary lymphadenopathy. Upper abdomen: Partially visualized upper abdominal viscera is within normal limits. Skeletal structures: There are minimal superior endplate compression deformities of T5, T7, and T8. No lytic or blastic bony lesions are seen. IMPRESSION: 1. There is no evidence of pulmonary embolus in the main, lobar, or segmental pulmonary arteries. 2. Multifocal groundglass consolidation throughout both lungs is typical for an infectious pneumonitis. Radiographic follow-up to resolution is recommended. 3. Emphysema. 4. Advanced coronary artery calcification. 5. Mildly enlarged mediastinal and hilar lymph nodes are likely on a reactive basis. 6. Additional findings as above. Hospital Course (1) Pneumonia due to 2019 novel coronavirus: CT chest: Multifocal groundglass consolidation throughout both lungs is typical for an infectious pneumonitis. Radiographic follow-up to resolution is recommended. Patient admitted with hypoxia, placed on 2 L of oxygen via nasal cannula Received a total of 5 days of remdesivir and Decadron IV, was plasma Renal function and liver function tests stable Patient gradually improved, able to be weaned off oxygen Lovenox for DVT prophylaxis Discharge plan: Decadron 6 mg p.o. daily x5 more days Continue with incentive spirometry, Mucinex added Repeat basic metabolic profile and liver function test in 2 to 3 days Elevated D-Dimer Mostly due to COVID 19 CT chest no PE Clinical exam no DVT Elevated Liver Enzymes Mostly due to HCV Case discussed with pharmacy about Remdesivir in HCV patient and that is not a contraindication LFTs stable Densely calcified coronary arteries Seen on CT chest Recommend aspirin 81 mg p.o. daily Further evaluation management per outpatient DVT px given Lovenox subq Code Status Full code Disposition Discharged back to correctional facility today Total Time Total Time Spent Total Time Spent (In Minutes): 45 minutes Discharge Plan Discharge Items Patient Disposition: Correctional Facility Reason For Visit: SOB Discharge Diagnosis: COVID-19 pneumonia with hypoxia Activity: Resume your previous activity Activity Comment: Gradually as tolerated, no heavy exertion Lifting: Wait until after follow-up appointment Non-emergency contact: Primary Care Provider Call non-emergency contact if: you have any medication questions, your symptoms worsen, your pain is not controlled, your pain is worsening, your pain is unusual for you, your pain is concerning for you and you have a fever Follow-up/Referrals: Paul Byrd [Primary Care Provider] - Diet: Regular Addtl Attending Provider Instructions: Patient needs to continue 5 more days of Decadron 6 mg p.o. to complete 10-day course Has already finished remdesivir 5-day course. Please repeat basic metabolic profile and liver profile in 2 to 3 days to make sure that renal function and liver function tests are okay. He also received Convalescent while admitted. Patient needs to continue incentive spirometry frequently. Ambulate frequently to prevent blood clots. He also needs to be isolated for at least 10 more days. Please refer to accompanying hospital discharge summary for further details. Follow-up with [facility] physician within 24 to 48 hours. Pending Studies at Discharge: Yes Studies:: Repeat basic metabolic profile and liver function test in 2 to 3 days. Stand-Alone Forms: My [employer], Smoking Cessation Skilled Items Patient informed of condition?: Yes Discharge Level of Care: Other Communicable Disease: Yes Discharge Prognosis: Stable Lines: None Urinary Catheter: No Medications and DC Order Prescriptions: New pantoprazole 40 mg Tablet,Delayed Release (Dr/Ec) 40 mg PO QAM Qty: 10 RF: 0 dexamethasone 4 mg Tablet 6 mg PO DAILY Qty: 5 RF: 0 guaifenesin [Mucinex] 600 mg Tablet Extended Release 12hr 1,200 mg PO Q12 Qty: 14 RF: 0 albuterol sulfate [Ventolin HFA] 90 mcg/actuation Hfa Aerosol Inhaler 1 puff inhalation QID PRN (Reason: shortness of breath or wheezing) Qty: 1 RF: 0 No Action No Known Home Medications RF: 0 Discharge Orders: Discharge Order (Routine); Ordered 03/06/20 Ordered By: Hugo Guerrero Admission Data Admit Date/Time: 03/02/20 19:50 Attending Provider: Hugo Guerrero Admit Provider: Keturah Restrepo Primary Care Provider: Paul Byrd Other Providers: Keturah Restrepo Other Interventions: Discharge Summary Assessment (RN) Last Done: 03/06/20 16:27
== END 2020-03-06 20:17 ==
LOC: ED 15:22 → EDINP 19:50 → SUATTDRO 19:50 → 3E 03-03 01:36